=== PATIENT | female | born 1965 | race Caucasian/White ===

== ENCOUNTER 2018-02-05 20:51 | Emergency (ER) | END 2018-02-06 02:17 | disposition home or self-care (01) ==

== ENCOUNTER 2018-08-20 00:43 | Inpatient (IN) | END 2018-08-23 17:45 | disposition home or self-care (01) | DRG 872 ==

== ENCOUNTER 2019-01-28 13:24 | Emergency (ER) | payer MEDICAID ==
[~2019-01-28] VITALS: Ht 157.5 cm; Wt 83.0 kg
[~2019-01-28 13:24] MED LIST: ASPI-903 PO; ATOR20TA38 PO; BACL10TA PO; BUTA1CAP38 PO; HYDR12.53 PO; LANT3I SC; LEVO750T25 PO; MAGN400T27 PO; METR500T PO; NAPR-985 PO
[2019-01-28 13:49] VITALS: Ht 157.5 cm; Wt 83.0 kg
[2019-01-28] MEDS ORDERED: SILV20CR13 TOP (15:19)
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
[2019-01-28] MEDS ORDERED: SILVER SULFADIAZINE 1% 25 GM CR TOP ONE (15:30)
[2019-01-28 16:04] VITALS: BP 178/87; PULSE 78; RESP 18
== END 2019-01-28 16:06 | disposition home or self-care (01) ==
LOC: E/R 13:24
DX: T21.22XA Burn of second degree of abdominal wall, initial encounter (principal); I10 Essential (primary) hypertension; E11.9 Type 2 diabetes mellitus without complications; X11.8XXA Contact with other hot tap-water, initial encounter; Y92.9 Unspecified place or not applicable; Z79.4 Long term (current) use of insulin; Z79.82 Long term (current) use of aspirin
CPT/HCPCS: 16000; Z7502; Z7610